=== PATIENT | female | born 1955 | race Caucasian/White ===

== ENCOUNTER 2018-11-11 11:05 | Day surgery (SDC) | payer MEDICARE, BC ==
--- NOTE | 2018-11-11 06:43 | History and Physical - [facility] ---
CHIEF COMPLAINT/HISTORY OF CHIEF COMPLAINT: This patient presents with pain which is low back, hip and leg. The history is chronic. Treatment history has been extensive conservatively based and unsuccessful. Diagnostic studies show disk abnormalities at multiple levels and spondylosis. She is here for a spinal infusion trial with Hydromorphone to determine if the implantation of a permanent system can be of any value in pain control. PAST MEDICAL HISTORY: Noncontributory. PAST SURGICAL HISTORY: Appendectomy and hysterectomy. MEDICATIONS ON ADMISSION: List to be provided. ALLERGIES: None. FAMILY/PSYCHOSOCIAL HISTORY: Social history - Caffeine. Family history - Noncontributory. SYSTEMS REVIEW: The patient is appropriate in no acute distress. The remainder of the systems review is positive for glasses, headaches, and degenerative arthritis. PHYSICAL EXAMINATION: Height is 5'1", weight is 104. Vital signs - Blood pressure 140/80. Current examination of the lumbar spine shows range of motion does produce pain throughout the low back and extending into the left leg. There currently are no motor or sensory abnormalities. Ambulation - No assistive device utilized. NEUROLOGIC: Cranial nerves are intact. IMPRESSION: LUMBAR RADICULOPATHY, ICD-10 CODE M54.16 AND M54.17. PLAN: The primary pain is radicular. The patient is here for a spinal infusion trial to determine if the implantation of a permanent system can be of any value in pain control. The potential risks, side effects and complications have been carefully reviewed and discussed. The procedure will be considered outpatient although an overnight stay will be evaluated. An epidural blood patchy will be performed as a prophylactic measure against spinal headache which will require the patient flat for four and slowly elevate for one. Information given including a CD ROM to explain the potential risks and side effects of paralysis, spinal cord injury, and nerve root injury which have all been reviewed. Interface with the clinical specialist from [facility] has been provided. All questions have been answered. JOB NUMBER: [id number] MTDD
[~2018-11-11 11:05] MED LIST: ACETAMINOPHEN 1,000 MG/100 ML BTL IV ONE; CEFAZOLIN 2 Gram 2 GM/50 ML BAG IVPB ONE; FAMOTIDINE 20MG TABLET PO ONE; HYDROMORPHONE PF 2MG/ML AMP 0.008 MG in 0.9 % SODIUM CHLORIDE 10ML VIA 0.996 ML IV ONE; HYDROMORPHONE PF 2MG/ML AMP 8 MG in 0.9 % SODIUM CHLORIDE 500ML 496 ML IV ONE; MECLIZINE 25 MG TABLET PO ONE; METOCLOPRAMIDE 10 MG TABLET PO ONE
[2018-11-11] MEDS ORDERED: PROPOFOL 10 MG/ML VIAL IV ONE (11:06)
[2018-11-11] MEDS ORDERED: Clindamycin 600mg vial 150 MG/ML VIAL IVPB ONE (11:06)
[2018-11-11] MEDS ORDERED: FENTANYL PF 100MCG/2ML VIAL IV ONE (11:06)
[2018-11-11] MEDS ORDERED: MIDAZOLAM HCL 2MG/2ML VIAL IV ONE (11:06)
[2018-11-11] MEDS ORDERED: LIDOCAINE 2% MDV (20MG/ML) 20ML VIAL IV ONE (11:06)
[2018-11-11] MEDS ORDERED: RINGERS SOLUTION,LACTATED 1,000 ML IV ONE (11:50)
[2018-11-11] MEDS ORDERED: BUPIVACAINE 0.5% W/EPI MPF 30 ML VIAL SQ ONE ×2 (13:13)
[2018-11-11] MEDS ORDERED: LIDOCAINE 1% W/EPI 1:100,000 MDV 20 ML VIAL SQ ONE ×2 (13:13)
[2018-11-11] MEDS ORDERED: RINGERS LACTATED IV ONE (13:49)
[2018-11-11] MEDS ORDERED: HYDROCODONE/APAP 7.5/325MG TABLET PO PRN (14:59)
[2018-11-11] MEDS ORDERED: METOCLOPRAMIDE HCL 10 MG/2 ML VIAL IVP PRN (14:59)
[2018-11-11] MEDS ORDERED: DIPHENHYDRAMINE HCL 50 MG/ML VIAL IVP PRN ×2 (14:59)
[2018-11-11] MEDS ORDERED: METOCLOPRAMIDE 10 MG TABLET PO PRN (14:59)
[2018-11-11] MEDS ORDERED: NALOXONE 0.4 MG/1 ML VIAL IVP PRN (14:59)
[2018-11-11] MEDS ORDERED: AL HYDROX/MAG HYDROX 30ML UD PO PRN (14:59)
[2018-11-11] MEDS ORDERED: TEMAZEPAM 15 MG CAPSULE PO PRN ×2 (14:59)
[2018-11-11] MEDS ORDERED: DIPHENHYDRAMINE HCL 25 MG CAPSULE PO PRN ×2 (14:59)
[2018-11-11] MEDS ORDERED: SENNOSIDES/DOCUSATE SODIUM UD CAPSULE PO PRN ×2 (14:59)
[2018-11-11] MEDS ORDERED: ACETAMINOPHEN 325 MG TAB PO PRN ×2 (14:59)
[2018-11-11] MEDS ORDERED: OXYCODONE/APAP 10MG-325MG TABLET PO PRN ×2 (14:59)
[2018-11-11] MEDS ORDERED: HYDROMORPHONE HCL 2 MG/ML VIAL IM PRN ×2 (14:59)
[2018-11-11] MEDS ORDERED: ALBUTEROL HFA 8 GM INHALER INH PRN (15:02)
[2018-11-11] MEDS ORDERED: ALBUTEROL SULFATE (0.083%) 2.5 MG/3 ML NEB INH PRN (15:02)
[2018-11-11] MEDS: RINGERS SOLUTION,LACTATED 1,000 ML IV SCH (15:53)
[2018-11-11] MEDS: CEFAZOLIN 2 Gram 2 GM/50 ML BAG IVPB SCH (19:30)
[2018-11-11] MEDS: HYDROCODONE/APAP 7.5/325MG TABLET PO PRN (19:30)
[2018-11-11] MEDS ORDERED: ZOLPIDEM TARTRATE 5 MG TABLET PO SCH (22:00)
[2018-11-11] MEDS ORDERED: ATORVASTATIN 20 MG TABLET PO SCH (22:00)
[2018-11-12] MEDS: HYDROCODONE/APAP 7.5/325MG TABLET PO PRN ×3 (01:10→09:16)
[2018-11-12] MEDS: RINGERS SOLUTION,LACTATED 1,000 ML IV SCH ×2 (01:12→08:13)
[2018-11-12] MEDS: CEFAZOLIN 2 Gram 2 GM/50 ML BAG IVPB SCH (03:13)
--- NOTE | 2018-11-12 11:30 | Operative Note ---
DATE OF SURGERY: 11/11/2018 PREOPERATIVE DIAGNOSIS: Intractable lumbar radiculopathy, ICD10 M54.16 and M54.17. OPERATION: 1. Fluoroscopic-guided spinal access at L4-5, placement of thin wall spinal catheter T12. 2. Diagnostic myelography with radiologic supervision and interpretation. 3. Bolus hydromorphone 0.004 mg into spinal space. 4. Incision, sub dissection, anchoring spinal catheter supraspinatus device with an anchor device and absorbable suture. 5. Incision, sub dissection, creation of subcutaneous pouch at right posterior gluteal margin for placement ultimately of pump. 6. Tunnel between midline spinal catheter pouch to a right lateral pouch catheter into right pouch. Resect, revise catheter interface with second catheter component by way of connector, second catheter component tunneled 6 cm superior exiting skin. 7. Interface external catheter with external pump set to deliver hydromorphone at 0.08 mg a day. 8. Closure of midline incision which Stratafix suture 2-0 fascia, 3-0 skin. Closure of right posterior pouch using running nylon. 9. Epidural blood patch at L5-S1, 20 mL autologous blood sterile technique and left antecubital after access 18-gauge Tuohy needle loss of resistance. 10. Placement of dressing securing catheter and all connections under sterile dressing. The patient then transported to recovery room flat, pillow under head, needle stable. No unusual side effects. Full functionality extremities. No unusual pain patterns. Stable. She was monitored until stable and then transported to the floor for monitoring status post epidural blood patch. She will stay flat for 4, slowly elevated for 1, and then be kept overnight for observation, discharged in the morning. Diagnostic myelography was performed. Contrast injection confirming appropriate flow characteristics, catheter position. There was CSF flow through the catheter noted at all points during the procedure. Diagnostic myelography confirmed functionality of the catheter. DISCHARGE INSTRUCTIONS: 1. The sites and dressings are to remain clean and dry. No showering or bathing in any way that would disrupt dressings. 2. Standard medications resumed. Clinchco 10/325 has been provided for postop pain control. She will take an antibiotic, Levaquin 500 mg once a day for 14 days, and will be evaluated in the office for a total of 3 pump re-programmings to be scheduled in the office over the next 2 weeks. At the end of the 2-week period of time or trial period, we will either implant the pump interface to the indwelling catheter or remove the indwelling catheter. Potential side effects or complications from spinal opioids including respiratory depression, nausea, vomiting, urinary retention, constipation, lightheadedness have all been discussed and reviewed. Should it happen, contact the clinic. All other instructions were provided, with numbers to contact for problems given. She was then discharged. CC: DO VIJAY Hinds
--- NOTE | 2018-11-13 15:02 | RADIOLOGY REPORT ---
EXAM: THORACOLUMBAR SPINE, ONE VIEW HISTORY: PAIN PUMP TRIAL. TECHNIQUE: A single AP view portable supine view of the lumbar and lower thoracic portions of the spine were obtained. Comparison: Same day intraoperative radiographs. FINDINGS: There is diffuse osteopenia. Bone cement is noted within the L5 vertebral body. No suspicious lytic or blastic bone lesion. There are degenerative changes scattered throughout the visualized spine. A single intraspinal catheter is in place likely entering the spinal canal at the L3-L4 level. The tip of the catheter is at the T12 level. IMPRESSION: INTRASPINAL CATHETER IN PLACE WITH ITS TIP AT THE T12 LEVEL. JOB NUMBER: [id number] MTDD
== END 2018-11-12 09:45 | disposition home or self-care (01) ==
LOC: SUR 11:05 → MEDSURG 14:33 → SUR 11-12 09:45
PROVIDERS: ATTEND Pain Medicine Interventional Pain Medicine
DX: M54.16 Radiculopathy, lumbar region (principal); M54.17 Radiculopathy, lumbosacral region; E78.00 Pure hypercholesterolemia, unspecified; F17.210 Nicotine dependence, cigarettes, uncomplicated
CPT/HCPCS: 63650; 63685; 62273; 01936; 72020; Q9967; J3490; J3010; J0690 ×2; J1170; J7040; J7120

== ENCOUNTER 2018-11-25 09:15 | Day surgery (SDC) | payer MEDICARE, BC ==
--- NOTE | 2018-11-25 06:49 | History and Physical - [facility] ---
CHIEF COMPLAINT/HISTORY OF CHIEF COMPLAINT: This patient presents with a history of intractable lumbar radiculopathy. Due to the failure of therapy an implanted catheter trial was initiated and started on 11/11/18. She is currently at 0.16 mg of Hydromorphone a day and is achieving 90% pain control. Due to the failure of all therapies and the success of the trial she is here for implantation of a permanent system by her request. PAST MEDICAL HISTORY: Unchanged. PAST SURGICAL HISTORY: Unchanged. MEDICATIONS ON ADMISSION: List to be provided. ALLERGIES: None. FAMILY/PSYCHOSOCIAL HISTORY: Social history - Unchanged. Family history - Unchanged. SYSTEMS REVIEW: The patient seems appropriate in no acute distress. PHYSICAL EXAMINATION: Height is 5'1", weight is 104. No vital signs. The dressings for the implanted catheter trial are all in place. The externalized pump continues appropriately. The external catheter component is intact. Primary pain pattern lower back and lower extremity. No motor and sensory abnormalities with pain across multiple distributions. NEUROLOGIC: Cranial nerves are intact. IMPRESSION: 1. LUMBAR RADICULOPATHY, ICD-10 CODE M54.16 AND M54.17. 2. IMPLANTED SPINAL CATHETER INFUSION TRIAL USING HYDROMORPHONE. PLAN: The patient is here for permanent implantation of the device. It has been carefully reviewed and discussed that at 104 pounds it will be quite literally impossible to place this device deep enough that it will not protrude. The posterior gluteal margin which is usually an optimal site will not be possible. This will go in the flank on the right above the belt line. She understands the difficulties and has accepted it and understands. We will do our best to place the device as deeply as possible, but will be limited obviously by body type. The procedure will be considered outpatient and an overnight stay will be evaluated. We will start the infusion at roughly 10-15% above her current end point at 0.16 mg a day. The side effects and complications have been reviewed and discussed. JOB NUMBER: [id number] MTDD
[~2018-11-25 09:15] MED LIST changes: -ACETAMINOPHEN 1,000 MG/100 ML BTL IV ONE; +ACETAMINOPHEN 1,000 MG/100 ML BTL IVPB ONE; -CEFAZOLIN 2 Gram 2 GM/50 ML BAG IVPB ONE; +CEFAZOLIN 2 Gram 2 GM/50 ML BAG IVPB SCH; +HYDROMORPHONE HCL 0.06 GM in 0.9 % SODIUM CHLORIDE 10ML VIA 20 ML IV ONE; -HYDROMORPHONE PF 2MG/ML AMP 8 MG in 0.9 % SODIUM CHLORIDE 500ML 496 ML IV ONE; +RINGERS SOLUTION,LACTATED 1,000 ML IV ONE
[2018-11-25] MEDS ORDERED: PROPOFOL 10 MG/ML VIAL IV ONE (09:16)
[2018-11-25] MEDS ORDERED: LIDOCAINE 2% MDV (20MG/ML) 20ML VIAL IV ONE (09:16)
[2018-11-25] MEDS ORDERED: MIDAZOLAM HCL 2MG/2ML VIAL IV ONE (09:16)
[2018-11-25] MEDS ORDERED: FENTANYL PF 100MCG/2ML VIAL IV ONE (09:16)
[2018-11-25] MEDS ORDERED: RINGERS SOLUTION,LACTATED 1,000 ML IV ONE ×2 (10:50→13:18)
[2018-11-25] MEDS ORDERED: LIDOCAINE 1% W/EPI 1:200,000 MPF 30ML SQ ONE ×2 (12:49)
[2018-11-25] MEDS ORDERED: BUPIVACAINE 0.5% W/EPI MPF 30 ML VIAL SQ ONE ×2 (12:49)
--- NOTE | 2018-11-27 10:00 | Operative Note ---
DATE OF SURGERY: 11/25/2018 PREOPERATIVE DIAGNOSIS: 1. Intractable lumbar radiculopathy, ICD-10 code M54.16 and M54.17. 2. Implanted spinal catheter, infusion and trial of hydromorphone. OPERATION: 1. Fluoroscopically guided incision, subcutaneous dissection, and creation of subcutaneous pouch at right flank for placement of pump identified as Medtronic 20 mL programmable. 2. Incision, subcutaneous dissection, and removal of externalized spinal catheter. 3. Incision, subcutaneous dissection, and revision of internal permanent catheter, interfaced with connector and secondary catheter component for pump. 4. Placement of 20 mL programmable pump onto field, prefilled hydromorphone 3 mg/mL interfaced with revised catheter. 5. Placement of pump catheter interface with pump into pouch at right flank, secured to posterior fascia with nonabsorbable suture to 3-point pump eyelets. 6. With pump into pouch, placement of a curved 24-gauge Mota needle to access port for aspiration and clearing catheter of opioid and CSF mixture. 7. Diagnostic myelography with radiologic supervision and interpretation using access port, confirming functionality and connections of the system. 8. Closure of incision using Stratafix suture 2-0 facia, 3-0 skin to provide closure. 9. Programming of pump to deliver continuous infusion of hydromorphone at 0.4 mg per day. Trial ended at 0.32. SURGEON: Vic Gonzalez D.O. ANESTHESIA: Local. ANESTHESIA PROVIDER: Shane Lopes. INDICATION: This patient with a history of intractable lumbar radiculopathy has an implanted spinal catheter infusing a trial of hydromorphone with 90% pain control. Due to the failure of all other therapies and the success of the trial, the patient presents, by request, for implantation of a permanent system. PROCEDURE: Intravenous line, vital sign monitoring, IV sedation, prepped and draped in sterile technique, patient was positioned prone. Sterile prep, sterile technique. Under imaging, the small pouch formed for the interface between external and internal catheter at the right flank marked, infiltrated, an incision made, and subcutaneous dissection was conducted for a pouch of suitable size and depth for a Medtronic 20 mL programmable pump. The incision was widened, the connection between the external catheter and internal permanent catheter clamped, cut. The external catheter was removed by pulling away from the incision. The permanent internal catheter was then revised, resected with a connector, and a second catheter component that would interface to the pump. A 20 mL programmable Medtronic pump, prefilled hydromorphone 3 mg/mL, was placed onto the field. The pump was then interfaced to the revised catheter. Antibiotic irrigation and Bovie hemostasis. The pump was then placed into the pouch, secured to the posterior fascia with nonabsorbable suture, 3-point pump eyelets. With the pump in the pouch at the right flank, a curved, 24-gauge Mota needle was inserted into the access port, and 1 mL of catheter contents was aspirated, clearing the catheter or opioid and CSF mixture. Diagnostic myelography was then performed through the access port. Resulting flow characteristics were appropriate and smooth, identifying catheter position in the spinal space, appropriate flow. Catheter connections to the pump were all identified and intact. Functionality was then confirmed. With the pump in the pouch, the incision was then closed using Stratafix suture, 2-0 fascia, 3-0 skin. A Dermabond closure was then used to approximate the edges of the wound. She was transported to the recovery room stable. There were no side effects from the procedure or sedation. When fully awake and alert, she was prepared for discharge by her request. DISCHARGE INSTRUCTIONS: 1. The sites will remain clean and dry. Although the Dermabond will allow showering, she should not sit in water. 2. Standard medications resumed, including antibiotic, Levaquin, which she will continue for another 7-10 days. 3. The dressing should stay intact. Do not peel it. She can trim the edges but keep the dressing intact. 4. Office to contact the patient in the next 24-48 hours to set up a time in the next 7-10 days for us to evaluate the site. Until then, she is to keep her activities controlled. 5. Other instructions were provided. 6. Spinal opioid side effects, including respiratory depression, nausea, vomiting, constipation urinary retention, lightheadedness, or rash have also been reviewed and discussed. She was then discharged. CC: Armin Valerio M.D. VIJAY
== END 2018-11-25 13:58 | disposition home or self-care (01) ==
LOC: SUR 09:15
PROVIDERS: ATTEND Pain Medicine Interventional Pain Medicine
DX: M54.16 Radiculopathy, lumbar region (principal); M54.17 Radiculopathy, lumbosacral region; E78.00 Pure hypercholesterolemia, unspecified; J44.9 Chronic obstructive pulmonary disease, unspecified; F17.210 Nicotine dependence, cigarettes, uncomplicated
CPT/HCPCS: 62367; C1755; C1776; J1170; J7120